=== PATIENT | female | born 1955 | race Caucasian/White ===

== ENCOUNTER 2021-11-09 10:38 | Outpatient (CLI) | payer MEDICARE, SELFPAY ==
--- NOTE | 2021-11-09 10:59 | XR_ITS ---
WS: [id number] Exam: XR lumbar spine 2-3V* [id number] Date/Time of Exam: 11/09/2021 11:02 AM Reason For Exam: LUMBAR BACK PAIN Comparison 06/02/2006. No acute fracture or dislocation. Degenerative vacuum disks noted from L2 to S1. Spondylosis. Moderat e dextroscoliosis. Facet DJD at all levels. Spondylosis. Extensive the atherosclerotic calcification of the abdominal aorta and iliac bifurcation. XR/XR lumbar spine 2-3V* [id number] IMPRESSION: 1. No fracture or malalignment.. 3. Moderate dextroscoliosis. 2. Moderately advanced degenerative disc changes from L2 to S1 with spondylosis
== END 2021-11-09 10:39 | disposition home or self-care (01) ==
PROVIDERS: PCP Family Medicine; Visit Provider Family Medicine
DX: M54.50 Low back pain, unspecified (principal)
CPT/HCPCS: 72100

== ENCOUNTER 2021-11-16 11:04 | Emergency (ER) | payer MEDICARE, SELFPAY ==
[2021-11-16 11:15] VITALS: BP 170/109; PULSE 95; RESP 20; TEMP 37; O2SAT 99
[2021-11-16 11:53] LABS: Basophils # 0.1 10^3/uL (0.0-0.1); Basophils % 0.8 %; Eosinophils # 0.1 10^3/uL (0.0-0.8); Eosinophils % 1.1 %; Hemoglobin 15.4 g/dL (11.5-15.3); Lymphocytes # 1.4 10^3/uL (0.8-4.8); Lymphocytes % 15.5 %; Mean Corpuscular HGB Conc 32.8 g/dL (30.0-36.0); Mean Corpuscular Hemoglobin 29.8 pg (28.0-34.0); Mean Corpuscular Volume 91.1 fl (81-99); Mean Platelet Volume 9.4 fL (7.4-10.4); Monocytes # 0.7 10^3/uL (0.2-0.9); Neutrophils # 6.82 10^3/uL (1.8-7.7); Neutrophils % 74.2 %; Nucleated Red Blood Cells % 0 %; Platelet Count 366 10^3/cmm (130-400); Red Blood Count 5.16 10^6/uL (4.1-5.3); Red Cell Distribution Width 13.2 % (12.1-15.1); White Blood Count 9.2 10^3/uL (4.0-10.0)
--- NOTE | 2021-11-16 12:21 | CT_ITS ---
WS: [id number] CT ABDOMEN AND PELVIS WITH CONTRAST HISTORY: Right-sided back pain, RIGHT lower quadrant pain TECHNIQUE: Imaging performed of the abdomen and pelvis with IV contrast. Single phase imaging of the abdomen. Coronal and sagittal reformats are submitted. All CT scans at [facility] use at [address] one of these dose optimization techniques: automated exposure control; mA and/or kV adjustment per patient size (includes targeted exams where dose is matched to clinical indication); or iterative re construction. IV CONTRAST: Omnipaque 350; 95 mL IV. Oral contrast: No DLP: 1385.44 mGy.cm COMPARISON: None available. Lower thorax: Lung bases are clear. Heart is normal size. Small hiatal hernia. Liver/biliary system: Normal size liver. Hepatic steatosis along the falciform ligament. Normally enh ancing portal vein. Gallbladder: Normal. No gallstones or wall thickening. No pericholecystic fluid. Pancreas: Normal size pancreas and pancreatic duct. No adjacent inflammation. Spleen: Normal size spleen. No mass or infarct. Adrenal glands: Normal. Right kidney: Normal. Left kidney: Too small to characterize hypodensities. No obstruction. Aorta: Moderate to severe atherosclerotic plaque throughout the aorta. Heavy calcification continues into the iliac arteries. Lymphadenopathy: None. Free fluid: None. GI tract: Unremarkable stomach. No small bowel dilatation. The appendix is normal. Numerous diverticu la in the distal colon without acute diverticulitis. Abdominal wall: Unremarkable abdominal wall. No hernia. Pelvis: No free fluid or adenopathy within the pelvis. Prior hysterectomy. Bones: Severe degenerative changes at the LEFT hip joint. Loss of the joint space with osteophytic ri dging and subchondral cystic changes. Advanced degenerative disc disease at L2-3, L3-4 and L4-5. No f ractures. CT/CT abdomen pelvis w con* [id number] IMPRESSION: 1. No acute abdominal or pelvic abnormalities. 2. Normal appendix. 3. No renal obstruction. 4. Moderate to severe atherosclerosis aorta and extending into the common jonathan c arteries. Suspect areas of high-grade stenosis involving the common iliac art eries. 5. Severe LEFT hip joint osteoarthritis.
--- NOTE | 2021-11-16 12:22 | W.ED.BACK ---
HPI - Back Pain/Injury General: Chief Complaint: Back Pain/Injury Stated Complaint: abdominal pain Time Seen by Provider: 11/16/21 11:46 Source: patient Mode of arrival: ambulatory History of Present Illness: 66-year-old female comes into the emergency room complaining of back pain and right flank right pelvic pain this been going on for the last week. She complains of tenderness in the right suprapubic pelvic area she has not had any fever sweats or chills. She has had abnormal stools for last years with some slightly blood-tinged stools and decreased caliber of stools difficulty with bowel movements. She has taken laxatives at times and will get bloody mucousy stools when she does this. She denies any dysuria urgency or frequency no history of nephrolithiasis no hematuria. When she was seen previously for the back pain plain films were done no significant findings were made she still is having back pain however the abdominal pelvic pain is worsening. Onset (ago): week(s) (1) Timing: intermittent Severity: moderate Similar Symptoms Previously: Yes Quality: aching Location: right flank Radiation: other (Right groin) Exacerbating factors: movement Relieving factors: none Associated symptoms: Deny abdominal pain, arthralgias, chills, change in bowel habits, difficulty walking, dysuria, fatigue, fecal incontinence, fever(s), hematuria, myalgias, nausea, numbness, syncope, tingling/numbness/burning, urinary frequency, urinary urgency, vomiting or weakness Review of Systems Const: Denies: fever(s), chills or fatigue ENMT: Denies: throat pain, ear or mastoid pain, nasal discharge or nasal congestion Card: Denies: syncope Resp: Denies: dyspnea, productive cough or non-productive cough GI: Denies: abdominal pain, nausea, vomiting, fecal incontinence or change in bowel habits : Denies: dysuria, urinary urgency or hematuria Skin/Breast: Denies: rash or pruritus Neuro: Denies: difficulty walking Physical Exam Const: COMMON NORMALS: no acute distress GENERAL APPEARANCE: cooperative and comfortable ORIENTATION/CONSCIOUSNESS: Yes awake, Yes oriented to person, Yes oriented to place and Yes oriented to time HENMT: COMMON NORMALS: normocephalic, atraumatic and hearing grossly normal bilaterally HEAD & SCALP: normocephalic and atraumatic Neck/C-Spine: COMMON NORMALS: no JVD Resp: COMMON NORMALS: normal respiratory effort, No retractions, No use of accessory muscles and clear to auscultation bilaterally AUSCULTATION: clear to auscultation bilaterally Cardio: COMMON NORMALS: no JVD, regular rate, regular rhythm and No murmurs present (Cardio) RATE: regular rate RHYTHM: regular rhythm GI: COMMON NORMALS: Soft to palpation and No hepatosplenomegaly present AUSCULTATION: Yes normoactive bowel sounds PALPATION: Yes Soft to palpation, No Tenderness to palpation present (GI), No Guarding due to palpation present (GI) and Yes No hepatosplenomegaly present Extremity: COMMON NORMALS: normal to inspection, capillary refill normal, no clubbing, cyanosis or edema, no calf tenderness and no pedal edema Neuro: SENSORIUM/ORIENTATION: Yes oriented to person, Yes oriented to place and Yes oriented to time OTHER: Straight leg raising test negative T10 pulses 1 of 4 with patellar tendons. Skin: COMMON NORMALS: no rashes or lesions noted GENERAL SKIN EXAM: no rashes or lesions noted Course Vital Signs: Vital signs: Vital Signs Temperature 98.6 F 11/16/21 11:15 Pulse Rate 95 11/16/21 11:15 Respiratory Rate 20 H 11/16/21 11:15 Blood Pressure 170/109 11/16/21 11:15 Pulse Oximetry 99 11/16/21 11:15 MDM - Back Pain/Injury Medical Decision Making Patient has significant peripheral vascular disease but is not having any claudication symptoms at this time most of her pain is musculoskeletal the remainder of her labs and x-rays reviewed with her we will discharge her home set up for cardiology recheck if not improving Medical Records I reviewed the patient's medical records. Labs I reviewed the patient's lab results. : 11/16/21 11:40 11/16/21 11:40 Radiology Impressions Abdomen/Pelvis CT 11/16/21 12:21 IMPRESSION: 1. No acute abdominal or pelvic abnormalities. 2. Normal appendix. 3. No renal obstruction. 4. Moderate to severe atherosclerosis aorta and extending into the common iliac arteries. Suspect areas of high-grade stenosis involving the common iliac arteries. 5. Severe LEFT hip joint osteoarthritis. Laboratory Results WBC 9.2 10^3/uL (4.0-10.0) 11/16/21 11:40 RBC 5.16 10^6/uL (4.1-5.3) 11/16/21 11:40 Hgb 15.4 g/dL (11.5-15.3) H 11/16/21 11:40 Hct 47.0 % (37.0-47.0) 11/16/21 11:40 MCV 91.1 fl (81-99) 11/16/21 11:40 MCH 29.8 pg (28.0-34.0) 11/16/21 11:40 MCHC 32.8 g/dL (30.0-36.0) 11/16/21 11:40 RDW 13.2 % (12.1-15.1) 11/16/21 11:40 Plt Count 366 10^3/cmm (130-400) 11/16/21 11:40 MPV 9.4 fL (7.4-10.4) 11/16/21 11:40 Neut % (Auto) 74.2 % 11/16/21 11:40 Lymph % (Auto) 15.5 % 11/16/21 11:40 Jerome % (Auto) 8.0 % 11/16/21 11:40 Eos % (Auto) 1.1 % 11/16/21 11:40 Baso % (Auto) 0.8 % 11/16/21 11:40 Neut # (Auto) 6.82 10^3/uL (1.8-7.7) 11/16/21 11:40 Lymph # (Auto) 1.4 10^3/uL (0.8-4.8) 11/16/21 11:40 Jerome # (Auto) 0.7 10^3/uL (0.2-0.9) 11/16/21 11:40 Eos # (Auto) 0.1 10^3/uL (0.0-0.8) 11/16/21 11:40 Baso # (Auto) 0.1 10^3/uL (0.0-0.1) 11/16/21 11:40 Nucleated RBC % (auto) 0 % 11/16/21 11:40 Nucleated RBCs # 0.0 /100WBC 11/16/21 11:40 Sodium 140 mmol/L (136-145) 11/16/21 11:40 Potassium 4.0 mmol/L (3.5-5.1) 11/16/21 11:40 Chloride 102 mmol/L (98-107) 11/16/21 11:40 Carbon Dioxide 24 mmol/L (22-29) 11/16/21 11:40 Anion Gap 18.0 (5-19) 11/16/21 11:40 BUN 13 mg/dL (8-23) 11/16/21 11:40 Creatinine 0.8 mg/dL (0.5-0.9) 11/16/21 11:40 GFR Calculation 71.8 mL/min (90-130) L 11/16/21 11:40 Glucose 100 mg/dL (65-115) 11/16/21 11:40 Calculated Osmolality 290 mOsm/kg (285-295) 11/16/21 11:40 Lactate 1.5 mmol/L (0.5-2.2) 11/16/21 11:40 Calcium 9.0 mg/dL (8.5-10.5) 11/16/21 11:40 Total Bilirubin 0.3 mg/dL (0.15-1.2) 11/16/21 11:40 AST 11 U/L (0-32) 11/16/21 11:40 ALT 13 U/L (0-33) 11/16/21 11:40 Alkaline Phosphatase 123 IU/L (35-105) H 11/16/21 11:40 Total Protein 6.6 g/dL (6.6-8.7) 11/16/21 11:40 Albumin 4.5 g/dL (3.5-5.2) 11/16/21 11:40 Globulin 2.1 g/dL (1.3-4.6) 11/16/21 11:40 Lipase 14 U/L (13-60) 11/16/21 11:40 Urine Color Yellow (Yellow) 11/16/21 Unknown Urine Appearance Clear (CLEAR) 11/16/21 Unknown Urine pH 6 (5-7) 11/16/21 Unknown Ur Specific [place] 1.015 (1.005-1.030) 11/16/21 Unknown Urine Protein Neg (Negative) 11/16/21 Unknown Urine Glucose (UA) Norm (Normal) 11/16/21 Unknown Urine Ketones Negative (Negative) 11/16/21 Unknown Urine Blood 2+ (Negative) H 11/16/21 Unknown Urine Nitrate Negative (Negative) 11/16/21 Unknown Urine Bilirubin Neg (Negative) 11/16/21 Unknown Urine Urobilinogen Norm mg/dL (Negative) 11/16/21 Unknown Ur Leukocyte Esterase Negative (Negative) 11/16/21 Unknown Urine RBC 0-4 /hpf (0-2) H 11/16/21 Unknown Urine WBC 0-4 /hpf (0-5) H 11/16/21 Unknown Ur Squamous Epith Cells 0-4 /hpf (0-5) H 11/16/21 Unknown Amorphous Sediment Not Reportable 11/16/21 Unknown Urine Bacteria 2+ /hpf (NONE) H 11/16/21 Unknown Discharge Plan Discharge Patient Disposition: Home Clinical Impression: Strain of lumbar region, Sciatica, PAD (peripheral artery disease) Condition: Stable Prescriptions: New hydrocodone-acetaminophen 5-325 mg tablet 1 tab PO Q6H PRN (Reason: pain) Qty: 15 0RF No Action albuterol sulfate 2.5 mg /3 mL (0.083 %) solution for nebulization 2.5 mg inhalation Q4H PRN (Reason: Shortness Of Breath) 0RF lisinopril 20 mg tablet 40 mg PO QAM 0RF tramadol 50 mg tablet 50 mg PO TID PRN (Reason: Pain) 0RF amlodipine 10 mg tablet 10 mg PO QAM 0RF levothyroxine 50 mcg tablet 50 mcg PO QAM 0RF ibuprofen 200 mg Tablet 800 mg PO BID 0RF albuterol sulfate 90 mcg/actuation HFA aerosol inhaler 2 puff INHALATION Q4H PRN (Reason: Shortness Of Breath) 0RF Spiriva with HandiHaler 18 mcg capsule, w/inhalation device 1 cap INHALATION QAM 0RF Symbicort 160-4.5 mcg/actuation HFA aerosol inhaler 2 puff INHALATION DAILY 0RF Discharge Orders: Discharge ED (Routine); Ordered 11/16/21 Ordered By: Marciano Ovalle Referrals: Jamal Yeh MD [Primary Care Provider] - Discharge Diet: Usual diet Discharge Activity: Increase activity as tolerated Patient Instructions: Opioid Safety Activity Restrictions/Additional Instructions: Case management will call make arrangements for you to follow-up with cardiology to evaluate the blood flow findings in your legs today. Use the pain medication as above and follow-up with your primary care doctor as needed. Coding Level of Care Code ED Signal Operator Linguist for Rebecca Henry
[2021-11-16] MEDS: ondansetron 2 mg/ML SDV 2 mL 4 MG IVP (12:27)
[2021-11-16] MEDS: morphine 4 mg/mL SDV 1 mL IVP (12:27)
[2021-11-16 12:36] LABS: Add Urine Microscopic? YES; Bilirubin Urine Neg (Negative); Blood Urine 2+ (Negative); Glucose Urine UA Norm (Normal); Ketones Urine Negative (Negative); Leukocyte Esterase Urine Negative (Negative); Nitrate Urine Negative (Negative); Protein Urine Neg (Negative); Specific Gravity, Urine 1.015 (1.005-1.030); Urine Appearance Clear (CLEAR); Urine Color Yellow (Yellow); Urobilinogen Urine Norm (Negative); pH Urine 6 (5-7)
[2021-11-16 12:41] LABS: Lactate (Lactic Acid level) 1.5 mmol/L (0.5-2.2)
[2021-11-16 12:45] LABS: Add Urine Culture? Yes; Bacteria Urine 2+ /hpf; RBC Urine 0-4 /hpf (0-2); Squamous Epithelial Cell Urine 0-4 /hpf (0-5); WBC Urine 0-4 /hpf (0-5)
[2021-11-16 12:54] LABS: Alanine Aminotransferase 13 U/L (0-33); Albumin Level 4.5 g/dL (3.5-5.2); Alkaline Phosphatase 123 IU/L (35-105); Aspartate Amino Transferase 11 U/L (0-32); Blood Urea Nitrogen 13 mg/dL (8-23); Carbon Dioxide 24 mmol/L (22-29); Chloride 102 mmol/L (98-107); Globulin 2.1 g/dL (1.3-4.6); Glomerular Filtration Rate 71.8 mL/min (90-130); Glucose 100 mg/dL (65-115); Lipase 14 U/L (13-60); Osmolality Calculated 290 mOsm/kg (285-295); Sodium 140 mmol/L (136-145); Total Bilirubin 0.3 mg/dL (0.15-1.2); Total Protein 6.6 g/dL (6.6-8.7)
[2021-11-16] MEDS: iohexol 350 mg/mL 100 mL Btl IV (13:50)
== END 2021-11-16 15:03 | disposition home or self-care (01) ==
PROVIDERS: Emergency Medicine; Emergency Provider Family Medicine; PCP Family Medicine
DX: S39.012A Strain of muscle, fascia and tendon of lower back, initial encounter (principal); X58.XXXA Exposure to other specified factors, initial encounter; M54.30 Sciatica, unspecified side; I73.9 Peripheral vascular disease, unspecified; Z79.51 Long term (current) use of inhaled steroids; Z79.891 Long term (current) use of opiate analgesic
CPT/HCPCS: 74177; 80053; 81001; 83605; 83690; 85025; 87086; 96374; 96375; 99284; J2270; J2405; Q9967

== ENCOUNTER → 2021-12-01 14:41 | Outpatient (BNVA) | payer MEDICARE, SELFPAY | PROVIDERS: PCP Family Medicine; Visit Provider Internal Medicine Cardiovascular Disease | DX: I77.1 Stricture of artery (principal); I10 Essential (primary) hypertension; E78.00 Pure hypercholesterolemia, unspecified; F17.200 Nicotine dependence, unspecified, uncomplicated | CPT/HCPCS: 99204 ==

== ENCOUNTER 2022-02-27 14:34 | Outpatient (CLI) | payer MEDICARE, SELFPAY ==
--- NOTE | 2022-02-27 15:00 | USCV_ITS ---
Anju Tipton Age: 67 Gender: F : 1955 Exam Date: 02/27/2022 14:53 Ordering Phys: Ning Weeks MD ([email or web address]) Technologist: Janis Whipple Exam Location: [facility] [place] [facility] [place] Indication: leg pain Risk Factors: None Previous Vascular Surgery: None RIGHT LEFT BP: 149.0 / 93.00 BP: 138.0/ 81.00 0 0 Waveform Velocity (cm/s) Velocity (cm/s) Waveform Triphasic 103.3 Iliac Prox 128.4 Triphasic Triphasic 121.8 Iliac Mid 110.8 Triphasic Triphasic 98.4 Iliac Distal 110.8 Triphasic Triphasic 88.9 PLUG MAKER 87.9 Triphasic Triphasic 82.8 SFA Prox 120.2 Triphasic Triphasic SFA Mid Biphasic 58.3 72.8 Triphasic 74.6 SFA Dist 34.2 Biphasic Triphasic 57.6 POP 58.3 Biphasic Triphasic 54.2 TRAFFIC SURVEY TECHNICIAN 41.7 Biphasic Triphasic 30.3 DPA 46.5 Biphasic 1.1 DARRICK 1.1 FINDINGS RT TRAFFIC SURVEY TECHNICIAN - 172, RT DPA- 144 LT TRAFFIC SURVEY TECHNICIAN- 158, LT DPA 148 Resting DARRICK 1.1 on the right and 1.1 on the left Mild to moderate plaques in the iliac and femoral arteries bilaterally. CONCLUSIONS Normal resting ABIs bilaterally Mild to moderate plaques in the iliac and femoral arteries bilaterally No significant arterial obstruction, based on the above findings Dr Ning Weeks MD [facility] (Electronically Signed) Final Date: 28 February 2022 01:02 S
== END 2022-02-27 14:35 | disposition home or self-care (01) ==
LOC: RAD 14:36
PROVIDERS: PCP Family Medicine; Visit Provider Internal Medicine Cardiovascular Disease
DX: I70.8 Atherosclerosis of other arteries (principal); I70.203 Unspecified atherosclerosis of native arteries of extremities, bilateral legs; M79.606 Pain in leg, unspecified
CPT/HCPCS: 93925

== ENCOUNTER 2022-03-01 14:01 | Outpatient (CLI) | payer MEDICARE, SELFPAY ==
--- NOTE | 2022-03-01 14:00 | CT_ITS ---
WS: [id number] CT ANGIOGRAPHY OF THE ABDOMINAL AORTA WITH RUNOFF TO THE ANKLES HISTORY: pelvic pain, atherosclerosis TECHNIQUE: Arterial injection is performed during imaging to evaluate the aorta and runoff vessels to the ankles. MIP and volume rendering imaging has also been performed. All images are reviewed. All C T scans at [facility] use at least one of these dose optimization techniques: automated exposu re control; mA and/or kV adjustment per patient size (includes targeted exams where dose is matched t o clinical indication); or iterative reconstruction. Contrast: Omnipaque 350; 95 mL IV. DLP: 824.86 mGy.cm COMPARISON: None available. Centrilobular emphysema at the lung bases. Heart is normal size. Remote rib fracture in the posterior RIGHT lower thorax. Abdominal aorta: Moderate calcified plaque throughout the small caliber aorta. Plaque becomes more ci rcumferential towards the bifurcation. Smallest diameter of aorta is 5.4 mm just above the bifurcatio n. No aneurysm. SMA and celiac axis are patent. There is a small amount of calcified plaque at the or igins of the renal arteries but the kidneys are perfusing normally. MAGDALENO is patent. RIGHT lower extremity arterial system: There is heavy calcified plaque at the origin of the RIGHT com mon iliac artery. Stenosis of the proximal RIGHT common iliac artery estimated 70%. Additional plaque through the internal and external iliac arteries. Femoral artery 50% narrowed due to intimal thicken ing and calcification. SFA and deep profunda are intact although small caliber. SFA patent to the pop liteal artery. Small caliber but three-vessel runoff to the ankle. Contrast opacification distally is limited due to the phase of injection. LEFT lower extremity arterial system: Heavy calcified plaque at the origin of the common iliac artery . Stenosis estimated to be 80% extending over a segment of 2 to 3 cm. Internal and external common il iac arteries are patent. Internal iliac artery is small caliber. Calcified plaque with 50% narrowing of the femoral artery. SFA and deep profunda are intact with mild atherosclerotic plaque. Small calib er deep profunda. Small amount of plaque in the mid thigh within the SFA. Calcification continues int o the distal SFA to the popliteal artery. Three-vessel opacification to the ankle but limited opacifi cation is probably due to phase of an contrast injection. Tricuspid regurgitation. Liver, spleen and pancreas are negative. Negative skull gallbladder. Normal adrenal glands. Vascular calcifications in the renal pelves but there is normal enhancement of the ki dneys. No ascites or adenopathy. No GI tract obstruction. Distal sigmoid diverticulosis without acute diverticulitis. Subcentimeter RI GHT lower quadrant lymph nodes. Severe degenerative osteoarthritis of the LEFT hip joint. Loss of the normal contour of the femoral h ead and acetabulum with subchondral cystic changes and lateral subluxation. Remodeling of the acetabu lum. Moderate degenerative disc disease throughout the lumbar spine. CT/CT angio abd aorta runof [id number] IMPRESSION: 1. Moderate atherosclerotic plaque throughout the abdominal aorta resulting in small caliber abdominal aorta. Minimal diameter is 5.4 cm just above the bifur cation. 2. Heavy calcified plaque bilaterally involving the origins and proximal commo n iliac arteries. RIGHT proximal iliac artery stenosis estimated at 70%. Proxim al LEFT iliac artery stenosis estimated at 80%. 3. 50% stenosis involving the femoral arteries. 4. Limited three-vessel runoff to the ankles. Beyond the mid calf the runoff i s very limited due to poor opacification. This is probably due to timing of the contrast injection bolus. 5. Severe LEFT hip joint osteoarthritis with remodeling and partial subluxatio n.
[2022-03-01 14:35] LABS: Blood Urea Nitrogen 16 mg/dL (8-23); Glomerular Filtration Rate 55.3 mL/min (90-130)
[2022-03-01] MEDS: iohexol 350 mg/mL 100 mL Btl IV (14:50)
== END 2022-03-01 14:02 | disposition home or self-care (01) ==
LOC: RAD 14:02
PROVIDERS: PCP Family Medicine; Visit Provider Internal Medicine Cardiovascular Disease
DX: I70.203 Unspecified atherosclerosis of native arteries of extremities, bilateral legs (principal); I77.1 Stricture of artery; R10.2 Pelvic and perineal pain; M16.12 Unilateral primary osteoarthritis, left hip
CPT/HCPCS: 75635; 82565; 84520

== ENCOUNTER → 2022-03-08 15:12 | Outpatient (BNVA) | payer MEDICARE, SELFPAY | PROVIDERS: PCP Family Medicine; Visit Provider Internal Medicine Cardiovascular Disease | DX: I70.203 Unspecified atherosclerosis of native arteries of extremities, bilateral legs (principal); R06.02 Shortness of breath; F17.210 Nicotine dependence, cigarettes, uncomplicated; I10 Essential (primary) hypertension | CPT/HCPCS: 99214 ==

== ENCOUNTER 2022-03-20 08:54 | Outpatient (CLI) | payer MEDICARE, SELFPAY ==
[2022-03-20 09:48] LABS: Alanine Aminotransferase 18 U/L (0-33); Albumin Level 4.2 g/dL (3.5-5.2); Alkaline Phosphatase 108 U/L (35-105); Aspartate Amino Transferase 13 U/L (0-32); Chol HDL Ratio 4.45 mg/dL (0.0-4.40); Cholesterol 236 mg/dL (0-200); Globulin 2.2 g/dL (1.3-4.6); HDL Cholesterol 53 mg/dL (60-100); LDL Cholesterol Calculated 157 mg/dL (50-129); Total Bilirubin 0.2 mg/dL (0.15-1.2); Total Protein 6.4 g/dL (6.6-8.7); Triglycerides 130 mg/dL (0-150); VLDL Cholestrol Calculation 26 mg/dL (0-30)
== END 2022-03-20 08:55 | disposition home or self-care (01) ==
LOC: LAB 08:58
PROVIDERS: PCP Family Medicine; Visit Provider Internal Medicine Cardiovascular Disease
DX: I70.203 Unspecified atherosclerosis of native arteries of extremities, bilateral legs (principal); E78.5 Hyperlipidemia, unspecified
CPT/HCPCS: 36415; 80061; 80076

== ENCOUNTER → 2022-07-06 13:57 | Outpatient (BNVA) | payer MEDICARE, SELFPAY | PROVIDERS: PCP Family Medicine; Visit Provider Internal Medicine Cardiovascular Disease | DX: I70.203 Unspecified atherosclerosis of native arteries of extremities, bilateral legs (principal); I10 Essential (primary) hypertension; E78.00 Pure hypercholesterolemia, unspecified; F17.200 Nicotine dependence, unspecified, uncomplicated | CPT/HCPCS: 99214 ==

== ENCOUNTER 2022-10-11 11:44 | Emergency (ER) | payer MEDICARE, SELFPAY ==
[2022-10-11 11:52] VITALS: BP 156/90; PULSE 95; RESP 16; TEMP 36.7; O2SAT 94
--- NOTE | 2022-10-11 11:58 | XRR_ITS ---
PROCEDURE INFORMATION: Exam: XR Abdomen Exam date and time: 10/11/2022 12:38 PM Age: 67 years old Clinical indication: Constipation; Abdominal pain; Generalized; Additional info: Abd pain /constipation TECHNIQUE: Imaging protocol: Radiologic exam of the abdomen. Views: Frontal supine view of the abdomen. 1 View. COMPARISON: CT abdomen pelvis w con* [id number] 11/16/2021 1:41 PM FINDINGS: Gastrointestinal tract: Bowel gas pattern is unremarkable. No sign of obstruction. Bones/joints: Severe osteoarthritis at the left hip. There is moderate multilevel lumbar disc degeneration. XR/XR KUB portable [id number] IMPRESSION: No acute findings.
[2022-10-11 12:12] LABS: Add Urine Microscopic? NO; Charge for UA Resulting for Rev
[2022-10-11 12:30] LABS: Bilirubin Urine Neg (Negative); Blood Urine Neg (Negative); Glucose Urine UA Norm (Normal); Ketones Urine Negative (Negative); Leukocyte Esterase Urine Negative (Negative); Nitrate Urine Negative (Negative); Protein Urine Neg (Negative); Urine Appearance Clear (CLEAR); Urine Color Yellow (Yellow); Urobilinogen Urine Norm (Negative); pH Urine 7 (5-7)
[2022-10-11 13:07] LABS: Basophils # 0.1 10^3/uL (0.0-0.1); Basophils % 0.8 %; Eosinophils # 0.1 10^3/uL (0.0-0.8); Hematocrit 40.6 % (37.0-47.0); Hemoglobin 13.5 g/dL (11.5-15.3); Lymphocytes # 1.5 10^3/uL (0.8-4.8); Lymphocytes % 18.9 %; Mean Corpuscular HGB Conc 33.3 g/dL (30.0-36.0); Mean Corpuscular Hemoglobin 29.6 pg (28.0-34.0); Mean Platelet Volume 9.4 fL (7.4-10.4); Monocytes # 0.6 10^3/uL (0.2-0.9); Monocytes % 8.1 %; Neutrophils # 5.44 10^3/uL (1.8-7.7); Neutrophils % 70.8 %; Nucleated Red Blood Cells % 0 %; Platelet Count 391 10^3/cmm (130-400); Red Blood Count 4.56 10^6/uL (4.1-5.3); Red Cell Distribution Width 13.4 % (12.1-15.1); White Blood Count 7.7 10^3/uL (4.0-10.0)
[2022-10-11 13:22] LABS: Alanine Aminotransferase 15 U/L (0-33); Albumin Level 3.7 g/dL (3.5-5.2); Alkaline Phosphatase 114 U/L (35-105); Anion Gap 14.9 (5-19); Aspartate Amino Transferase 14 U/L (0-32); Blood Urea Nitrogen 7 mg/dL (8-23); Calcium 9.1 mg/dL (8.5-10.5); Carbon Dioxide 24 mmol/L (22-29); Chloride 106 mmol/L (98-107); Globulin 2.6 g/dL (1.3-4.6); Glomerular Filtration Rate 99.7 mL/min (90-130); Glucose 93 mg/dL (65-115); Osmolality Calculated 292 mOsm/kg (285-295); Sodium 142 mmol/L (136-145); Total Bilirubin 0.3 mg/dL (0.15-1.2); Total Protein 6.3 g/dL (6.6-8.7)
--- NOTE | 2022-10-11 13:26 | CTR_ITS ---
PROCEDURE INFORMATION: Exam: CT Abdomen And Pelvis Without Contrast Exam date and time: 10/11/2022 1:45 PM Age: 67 years old Clinical indication: Abdominal pain; Localized; Patient HX: Bloating, lower abd pain, and cramping TECHNIQUE: Imaging protocol: Computed tomography of the abdomen and pelvis without contrast. Radiation optimization: All CT scans at this facility use at least one of these dose optimization techniques: automated exposure control; mA and/or kV adjustment per patient size (includes targeted exams where dose is matched to clinical indication); or iterative reconstruction. REPORTING DATA: Count of CT and Cardiac NM exams in prior 12 months: This patient has received 2 known CTs and 0 known cardiac nuclear medicine studies in the 12 months prior to the current study. COMPARISON: 1. CT abdomen pelvis w con* [id number] 11/16/2021 1:41 PM 2. CR XR KUB portable [id number] 10/11/2022 12:[address] angio abd aorta runof [id number] 03/01/2022 2:38 PM RADIATION DOSE METRICS: Total DLP (mGy-cm): 466.63 FINDINGS: Lungs: Lung bases are clear. Liver: The liver is normal. Gallbladder and bile ducts: The gallbladder is normal. There is no biliary dilation. Pancreas: The pancreas is unremarkable. Spleen: The spleen is unremarkable. Adrenal glands: The adrenal glands are unremarkable. Kidneys and ureters: The kidneys are unremarkable. No hydronephrosis or stones. No ureteral dilation. Stomach and bowel: The stomach is decompressed, preventing meaningful evaluation of wall thickness. The small bowel is nondilated. There is moderate sigmoid colonic diverticulosis without evidence of diverticulitis. Appendix: The appendix is normal. Intraperitoneal space: There is no free air or significant intraperitoneal free fluid. Vasculature: There is severe aortic atherosclerotic disease. Lymph nodes: There is no lymphadenopathy in the retroperitoneum, mesentery, pelvis or inguinal regions. Urinary bladder: The urinary bladder is unremarkable. Reproductive: The uterus is absent. There is no adnexal mass or large cyst. Bones/joints: There is moderate degenerative disease in the lumbar spine. There is severe degenerative disease at the left hip. The right hip is normal. Joint space is preserved. The bony pelvis is intact. Soft tissues: The abdominal wall is intact. CT/CT abdomen pelvis wo con [id number] IMPRESSION: 1. No acute findings. 2. Incidental findings above.
[2022-10-11 13:28] LABS: Potassium 2.9 mmol/L (3.5-5.1)
--- NOTE | 2022-10-11 13:30 | W.ED.ABDPA2 ---
HPI - Abdominal Pain General: Chief Complaint: Abdominal Pain Stated Complaint: abd pain/constipation Time Seen by Provider: 10/11/22 11:58 Source: patient Mode of arrival: ambulatory History of Present Illness: 67-year-old female presents to the emergency room with complaint of abdominal pain. Its been intermittent for the last week and a half she says refocuses in the left lower quadrant. She was seen previously and started on ciprofloxacin by her primary care doctor. She denies any medic easy money hematemesis coffee-ground emesis had a little bit of a low-grade fever at home denies any dysuria urgency or frequency. MD elicited complaint: abdominal pain Pertinent past history: constipation Onset (ago): week(s) (07/24) Pain Consistency: intermittent Location: LUQ and LLQ Severity: mild Quality: cramping Exacerbating factors: nothing Relieving factors: nothing Associated Symptoms: Reports constipation and GI cramping; Denies anorexia, belching, bloating, change in bowel habits, change in stool character, chills, coffee ground emesis, diarrhea, dyspepsia, dysuria, excessive flatus, fever(s), heartburn, hematochezia, hematuria, hematemesis, fecal incontinence, loose stools, melena, nausea, poor appetite, syncope and vomiting Review of Systems Const: Denies: fever(s) or chills Card: Denies: syncope Resp: Denies: dyspnea or productive cough GI: Reports: constipation and GI cramping; Denies: abdominal pain, nausea, vomiting, hematemesis, coffee ground emesis, heartburn, diarrhea, bloating, belching, excessive flatus, fecal incontinence, change in bowel habits, change in stool character, hematochezia or melena : Denies: flank pain, dysuria, urinary frequency, urinary urgency or hematuria PFSH ED PFSH: Medical History Atherosclerosis of artery of both lower extremities Essential hypertension Iliac artery stenosis, bilateral Pure hypercholesterolemia Family History Father CAD (coronary artery disease), Onset Age: 60 Mother Diabetes Lung disease Brother Diabetes Denies family history of Clotting disorder Dementia Chronic kidney disease (CKD) Suicide Anesthesia complication Bleeding disorder Cancer Stroke Social History Smoking and tobacco status: current every day smoker Alcohol intake: never Physical Exam Const: GENERAL APPEARANCE: cooperative and comfortable ORIENTATION/CONSCIOUSNESS: Yes awake, Yes oriented to person, Yes oriented to place and Yes oriented to time HENMT: COMMON NORMALS: normocephalic, atraumatic and hearing grossly normal bilaterally HEAD & SCALP: normocephalic and atraumatic Resp: COMMON NORMALS: normal respiratory effort, No retractions, No use of accessory muscles and clear to auscultation bilaterally AUSCULTATION: clear to auscultation bilaterally Cardio: COMMON NORMALS: regular rate, regular rhythm and No murmurs present (Cardio) RATE: regular rate RHYTHM: regular rhythm GI: COMMON NORMALS: No hepatosplenomegaly present AUSCULTATION: Yes normoactive bowel sounds PALPATION: Yes Tenderness to palpation present (GI), No Guarding due to palpation present (GI) and Yes No hepatosplenomegaly present Extremity: COMMON NORMALS: normal to inspection, capillary refill normal, no clubbing, cyanosis or edema, no calf tenderness and no pedal edema Neuro: SENSORIUM/ORIENTATION: Yes oriented to person, Yes oriented to place and Yes oriented to time Skin: COMMON NORMALS: no rashes or lesions noted GENERAL SKIN EXAM: no rashes or lesions noted Course Vital Signs: Vital signs: Vital Signs Temperature 98.0 F 10/11/22 11:52 Pulse Rate 95 10/11/22 11:52 Respiratory Rate 16 10/11/22 11:52 Blood Pressure 156/90 10/11/22 11:52 Pulse Oximetry 94 10/11/22 11:52 Oxygen Delivery Me thod 10/11/22 11:52 MDM - Abdominal Pain Medical Decision Making Labs and imaging reviewed no acute findings white count normal CT of the abdomen does not show any acute findings. We will discharge patient home. Clear liquid diet advance as tolerated patient also has some hypokalemia she was given oral potassium supplement emergency room and discharged home with p.o. supplement. Follow-up with her primary care doctor return if is worsening problems. Differential Diagnosis Likely abdominal pain, acute appendicitis, calculus of kidney, constipation, diverticulitis, gastroenteritis and small bowel obstruction Medical Records I reviewed the patient's medical records. Lab Data I reviewed the patient's lab results. 10/11/22 12:29 10/11/22 12:29 Labs/Radiology: Radiology Impressions KUB X-Ray 10/11/22 11:58 IMPRESSION: No acute findings. Abdomen/Pelvis CT 10/11/22 13:26 IMPRESSION: 1. No acute findings. 2. Incidental findings above. Laboratory Results WBC 7.7 10^3/uL (4.0-10.0) 10/11/22 12: RBC 4.56 10^6/uL (4.1-5.3) 10/11/22 12: Hgb 13.5 g/dL (11.5-15.3) 10/11/22 12: Hct 40.6 % (37.0-47.0) 10/11/22 12: MCV 89.0 fl (81-99) 10/11/22 12: MCH 29.6 pg (28.0-34.0) 10/11/22 12: MCHC 33.3 g/dL (30.0-36.0) 10/11/22 12: RDW 13.4 % (12.1-15.1) 10/11/22 12: Plt Count 391 10^3/cmm (130-400) 10/11/22 12: MPV 9.4 fL (7.4-10.4) 10/11/22 12: Neut % (Auto) 70.8 % 10/11/22 12: Lymph % (Auto) 18.9 % 10/11/22 12: [place] % (Auto) 8.1 % 10/11/22 12: Eos % (Auto) 1.0 % 10/11/22 12:29 Baso % (Auto) 0.8 % 10/11/22 12: Neut # (Auto) 5.44 10^3/uL (1.8-7.7) 10/11/22 12: Lymph # (Auto) 1.5 10^3/uL (0.8-4.8) 10/11/22 12: [place] # (Auto) 0.6 10^3/uL (0.2-0.9) 10/11/22 12: Eos # (Auto) 0.1 10^3/uL (0.0-0.8) 10/11/22 12:29 Baso # (Auto) 0.1 10^3/uL (0.0-0.1) 10/11/22 12: Nucleated RBC % (auto) 0 % 10/11/22 12: Nucleated RBCs # 0.0 /100WBC 10/11/22 12:29 Sodium 142 mmol/L (136-145) 10/11/22 12: Potassium 2.9 mmol/L (3.5-5.1) L 10/11/22 12: Chloride 106 mmol/L (98-107) 10/11/22 12: Carbon Dioxide 24 mmol/L (22-29) 10/11/22 12: Anion Gap 14.9 (5-19) 10/11/22 12: BUN 7 mg/dL (8-23) L 10/11/22 12: Creatinine 0.6 mg/dL (0.5-0.9) 10/11/22 12: GFR Calculation 99.7 mL/min (90-130) 10/11/22 12: Glucose 93 mg/dL (65-115) 10/11/22 12: Calculated Osmolality 292 mOsm/kg (285-295) 10/11/22 12: Calcium 9.1 mg/dL (8.5-10.5) 10/11/22 12: Total Bilirubin 0.3 mg/dL (0.15-1.2) 10/11/22 12:29 AST 14 U/L (0-32) 10/11/22 12: ALT 15 U/L (0-33) 10/11/22 12:29 Alkaline Phosphatase 114 U/L (35-105) H 10/11/22 12:29 Total Protein 6.3 g/dL (6.6-8.7) L 10/11/22 12: Albumin 3.7 g/dL (3.5-5.2) 10/11/22 12: Globulin 2.6 g/dL (1.3-4.6) 10/11/22 12:29 Urine Color Yellow (Yellow) 10/11/22 12:00 Urine Appearance Clear (CLEAR) 10/11/22 12:00 Urine pH 7 (5-7) 10/11/22 12:00 Ur Specific [place] 1.010 (1.005-1.030) 10/11/22 12:00 Urine Protein Neg (Negative) 10/11/22 12:00 Urine Glucose (UA) Norm (Normal) 10/11/22 12:00 Urine Ketones Negative (Negative) 10/11/22 12:00 Urine Blood Neg (Negative) 10/11/22 12:00 Urine Nitrate Negative (Negative) 10/11/22 12:00 Urine Bilirubin Neg (Negative) 10/11/22 12:00 Urine Urobilinogen Norm mg/dL (Negative) 10/11/22 12:00 Ur Leukocyte Esterase Negative (Negative) 10/11/22 12:00 Discharge Plan Discharge Patient Disposition: Home Clinical Impression: Abdominal pain, Hypokalemia Condition: Stable Prescriptions: New potassium chloride 20 mEq tablet extended release 20 meq PO BID Qty: 6 0RF No Action clopidogrel [Plavix] 75 mg tablet 75 mg PO DAILY Qty: 90 3RF albuterol sulfate 2.5 mg /3 mL (0.083 %) solution for nebulization 2.5 mg inhalation Q4H PRN (Reason: Shortness Of Breath) lisinopril 20 mg tablet 40 mg PO QAM tramadol 50 mg tablet 50 mg PO TID PRN (Reason: Pain) amlodipine 10 mg tablet 10 mg PO QAM levothyroxine 50 mcg tablet 50 mcg PO QAM ibuprofen 200 mg Tablet 800 mg PO BID albuterol sulfate 90 mcg/actuation HFA aerosol inhaler 2 puff INHALATION Q4H PRN (Reason: Shortness Of Breath) Spiriva with HandiHaler 18 mcg capsule, w/inhalation device 1 cap INHALATION QAM budesonide-formoterol [Symbicort] 160-4.5 mcg/actuation HFA aerosol inhaler 2 puff INHALATION BID hydralazine 25 mg tablet 25 mg PO DAILY promethazine 25 mg Tablet 25 mg PO BID PRN (Reason: Nausea) Discharge Orders: Discharge ED (Routine); Ordered 10/11/22 Ordered By: Marciano Ovalle Referrals: KWADWO CARTER MD [Primary Care Provider] - Patient Instructions: Abdominal Pain (ED), Opioid Safety, Pain Management Activity Restrictions/Additional Instructions: You are seen for abdominal pain CT and laboratory tests are unremarkable recommend anticoagulants. You are also found to be hypokalemic recommend potassium supplement you were given some potassium supplement here in the emergency room you should take 1 pill twice daily for 3 days starting tomorrow recheck your potassium level with your primary care doctor in 2 to 3 days. Coding Level of Care Code ED Base W[employer] Operator Adjuster for Rebecca Henry
[2022-10-11] MEDS: potassium chloride oral liq 20 mEq/15 mL UDC 40 MEQ PO (14:23)
== END 2022-10-11 15:06 | disposition home or self-care (01) ==
PROVIDERS: Emergency Provider Family Medicine; PCP Family Medicine
DX: R10.32 Left lower quadrant pain (principal); E87.6 Hypokalemia; Z79.02 Long term (current) use of antithrombotics/antiplatelets; I25.10 Atherosclerotic heart disease of native coronary artery without angina pectoris; I10 Essential (primary) hypertension; F17.210 Nicotine dependence, cigarettes, uncomplicated
CPT/HCPCS: 74018; 74176; 80053; 81003; 85025; 99285

== ENCOUNTER → 2023-01-18 14:07 | Outpatient (BNVA) | payer MEDICARE, SELFPAY | PROVIDERS: PCP Family Medicine; Visit Provider Internal Medicine Cardiovascular Disease | DX: I77.9 Disorder of arteries and arterioles, unspecified (principal); R06.02 Shortness of breath; I10 Essential (primary) hypertension; E78.00 Pure hypercholesterolemia, unspecified; F17.200 Nicotine dependence, unspecified, uncomplicated | CPT/HCPCS: 99214 ==

== ENCOUNTER → 2023-10-03 10:22 | Outpatient (BNVA) | payer MEDICARE, SELFPAY | PROVIDERS: PCP Family Medicine; Visit Provider Nurse Practitioner Family | DX: I77.1 Stricture of artery (principal); I10 Essential (primary) hypertension; F17.200 Nicotine dependence, unspecified, uncomplicated | CPT/HCPCS: 99214 ==

== ENCOUNTER 2023-10-04 07:38 | Outpatient (CLI) | payer MEDICARE, SELFPAY ==
--- NOTE | 2023-10-04 07:42 | US_ITS ---
WS: [id number] ULTRASOUND ABDOMEN CLINICAL INFORMATION: DIVERTICULITIS COMPARISON: None. FINDINGS: Technically difficult study due to bowel gas. Liver Size: Normal. Craniocaudal length: 14.5 cm. Echogenicity: Coarse and echogenic Surface nodularity: None. Mass (size and location): None. Normal flow in the main portal vein. Bile ducts Intrahepatic ducts: Normal. Common bile duct diameter: 0.5 cm. Gallbladder Normal. Gallstones: None. Gallbladder sludge: None. Gallbladder wall thickening: None. Pericholecystic fluid: None. Sonographic Amezcua sign: Absent. Pancreas Not well visualized Spleen Splenomegaly: None. Craniocaudal length: 6.9 cm. Right kidney: Normal. Hydronephrosis: None. Size: 8.4 cm x 3.7 cm x 3.9 cm Left kidney: Normal. Hydronephrosis: None. Size: 8.4 cm x 5.6 cm x 3.9 cm. Abdominal aorta and IVC Visualized portions are normal. Ascites: None. IMPRESSION: 1. Mild diffuse fatty infiltration of the liver. 2. Normal gallbladder. 3. Normal common bile duct. 4. No hydronephrosis in either kidney. 5. Spleen somewhat diminutive but otherwise normal.
== END 2023-10-04 07:39 | disposition home or self-care (01) ==
LOC: RAD 07:40
PROVIDERS: PCP Internal Medicine; Visit Provider Family Medicine
DX: K57.92 Diverticulitis of intestine, part unspecified, without perforation or abscess without bleeding (principal); R10.30 Lower abdominal pain, unspecified; K76.0 Fatty (change of) liver, not elsewhere classified
CPT/HCPCS: 76700

== ENCOUNTER 2023-10-09 13:57 | Outpatient (CLI) | payer MEDICARE, SELFPAY ==
--- NOTE | 2023-10-09 14:30 | CTR_ITS ---
PROCEDURE INFORMATION: Exam: CTA Abdominal Aorta and Bilateral Lower Extremities (Run-off) With Contrast Exam date and time: 10/09/2023 2:19 PM Age: 68 years old Clinical indication: Other: Pain in low back into right groin area x 2 years; Prior surgery; Surgery date: 6+ months; Surgery type: Hyst; Additional info: Iliac stenosis bilateral, 70-80% TECHNIQUE: Imaging protocol: Computed tomographic angiography of the of the abdominal aorta, pelvis and bilateral lower extremities with contrast. 3D rendering (Not supervised by radiologist): MIP and/or 3D reconstructed images were created by the technologist. Total images: 1 Radiation optimization: All CT scans at this facility use at least one of these dose optimization techniques: automated exposure control; mA and/or kV adjustment per patient size (includes targeted exams where dose is matched to clinical indication); or iterative reconstruction. Contrast material: OMNI 350; Contrast volume: 125 ml; Contrast route: INTRAVENOUS (IV); COMPARISON: CT angio abd aorta runof 18422 03/01/2022 2:38 PM RADIATION DOSE METRICS: Total DLP (mGy-cm): 1370.25 FINDINGS: Atherosclerotic burden: Moderate atherosclerotic disease burden is evident. Aorta: No aortic aneurysm. No aortic dissection. Celiac trunk and mesenteric arteries: No occlusion or significant stenosis. Renal arteries: No occlusion or significant stenosis. Right iliac arteries: Mild right common iliac stenosis measured at approximately 50% secondary to calcified atherosclerotic plaque. Right femoral/popliteal arteries: Mild stenosis of right common femoral artery secondary to calcified atherosclerotic plaque. Right infrapopliteal arteries: No occlusion or significant stenosis. Left iliac arteries: Mild left common iliac artery stenosis measured at 40% secondary to calcified atherosclerotic plaque. Left femoral/popliteal arteries: Mild stenosis of left common femoral artery secondary to calcified atherosclerotic plaque. Left infrapopliteal arteries: No occlusion or significant stenosis. Lungs: Moderate centrilobular emphysematous changes are present. Liver: No mass. Gallbladder and bile ducts: Unremarkable. No calcified stones. No ductal dilation. Pancreas: Unremarkable. No mass. No ductal dilation. Spleen: Normal. No splenomegaly. Adrenal glands: Normal. No mass. Kidneys and ureters: 7 mm incidental left renal cyst requiring no further evaluation. Stomach and bowel: Incidental duodenal diverticulum noted. Colonic diverticulosis is present without diverticulitis. Appendix: No evidence of appendicitis. Urinary bladder: Unremarkable. No mass. Reproductive: Prior hysterectomy noted. Intraperitoneal space: Unremarkable. No free air. No significant fluid collection. Lymph nodes: No lymphadenopathy. Bones/joints: Minimal joint effusion at left knee. Moderate joint effusion at right knee. Old right rib fracture evident. There are severe degenerative changes in the left hip joint. Multilevel degenerative disc disease is noted with vacuum phenomenon. Osteophytes are noted extending from the vertebrae. No acute spinal pathology is detected. Soft tissues: Unremarkable. CT/CT angio abd aorta runof [id number] IMPRESSION: 1. Moderate centrilobular emphysematous changes are present. 2. Mild right common iliac stenosis measured at approximately 50% secondary to calcified atherosclerotic plaque. 3. Mild left common iliac artery stenosis measured at 40% secondary to calcified atherosclerotic plaque. 4. Mild stenosis of right common femoral artery secondary to calcified atherosclerotic plaque. 5. Mild stenosis of left common femoral artery secondary to calcified atherosclerotic plaque.
[2023-10-09] MEDS: iohexol 350 mg/mL 500 mL Btl (per mL) IV (14:31)
== END 2023-10-09 13:58 | disposition home or self-care (01) ==
LOC: RAD 14:02
PROVIDERS: PCP Internal Medicine; Visit Provider Nurse Practitioner Family
DX: I70.203 Unspecified atherosclerosis of native arteries of extremities, bilateral legs (principal); I77.1 Stricture of artery; R10.31 Right lower quadrant pain; M54.50 Low back pain, unspecified; J43.2 Centrilobular emphysema
CPT/HCPCS: 75635; Q9967

== ENCOUNTER 2024-01-01 11:10 | Emergency (ER) | payer MEDICARE, SELFPAY ==
[2024-01-01 11:14] VITALS: BP 172/91; PULSE 100; RESP 17; TEMP 36.7; O2SAT 95; BMI 29.2
[2024-01-01 12:21] LABS: Basophils # 0.1 10^3/uL (0.0-0.1); Basophils % 0.5 %; Eosinophils # 0.1 10^3/uL (0.0-0.8); Eosinophils % 0.7 %; Hematocrit 43.8 % (36-47); Lymphocytes # 1.3 10^3/uL (0.8-4.8); Lymphocytes % 10.9 %; Mean Corpuscular HGB Conc 32.4 g/dL (30-55); Mean Corpuscular Hemoglobin 29.2 pg (27-33); Mean Corpuscular Volume 89.9 fl (85-98); Monocytes % 8.2 %; Neutrophils # 9.55 10^3/uL (1.8-7.7); Neutrophils % 78.7 %; Nucleated Red Blood Cells % 0 %; Platelet Count 421 10^3/cmm (157-399); Red Blood Count 4.87 10^6/uL (3.85-5.65); White Blood Count 12.13 10^3/uL (3.29-11.43)
[2024-01-01 12:45] LABS: Alanine Aminotransferase 17 U/L (0-33); Albumin Level 3.5 g/dL (3.5-5.2); Alkaline Phosphatase 105 U/L (35-105); Anion Gap 16.6 (5-19); Aspartate Amino Transferase 13 U/L (0-32); Blood Urea Nitrogen 10 mg/dL (8-23); Calcium 9.2 mg/dL (8.5-10.5); Carbon Dioxide 24 mmol/L (22-29); Chloride 102 mmol/L (98-107); Creatinine Clr Calc Pharmacy 57.9228; Globulin 3.4 g/dL (1.3-4.6); Glomerular Filtration Rate 99.4 mL/min (90-130); Glucose 107 mg/dL (65-115); Lipase 14 U/L (13-60); Osmolality Calculated 288 mOsm/kg (285-295); Potassium 3.6 mmol/L (3.5-5.1); Sodium 139 mmol/L (136-145); Total Bilirubin 0.3 mg/dL (0.15-1.2); Total Protein 6.9 g/dL (6.6-8.7)
--- NOTE | 2024-01-01 13:16 | ED_ITS ---
HPI - Nausea/Vomiting/Diarrhea 2 General: Chief complaint: Nausea/Vomiting/Diarrhea Stated complaint: Nausea Time Seen by Provider: 01/01/24 13:01 Source: patient Mode of arrival: ambulatory Limitations: no limitations History of Present Illness: 68-year-old female states she has been h aving nausea vomiting last 2 days states she has not been able to tolerate any p.o. she feels like she is getting dehydrated she denies any pain denies any fever she has had no diarrhea states she had normal bowel movements. Associated nausea: Yes Associated symtoms: Reports nausea; Denies chest pain, dysuria or headache(s) Review of Systems 2 Const: Denies: fever(s), chills, body aches or change in appetite ENMT: Denies: throat pain or dental pain Card: Denies: chest pain Resp: Denies: dyspnea GI: Reports: nausea and vomiting; Denies: abdominal pain or diarrhea : Denies: dysuria Musc: Denies: neck pain or back pain Skin/Breast: Denies: rash Neuro: Denies: headache(s) PFSH ED 2 PFSH: Medical History Hypothyroidism Spinal enthesopathy MDD (major depressive disorder) Osteoarthritis Obesity COPD (chronic obstructive pulmonary disease) Hyperlipidemia Essential hypertension Iliac artery stenosis, bilateral Pure hypercholesterolemia Atherosclerosis of artery of both lower extremities Surgical History Hx of hysterectomy Family History Father CAD (coronary artery disease), Onset Age: 60 Mother Diabetes Lung disease Brother Diabetes Denies family history of Clotting disorder Dementia Chronic kidney disease (CKD) Suicide Anesthesia complication Bleeding disorder Cancer Stroke Social History Smoking and tobacco/nicotine status: current every day tobacco/nicotine user Alcohol intake: never Substance/Drug Use: never Physical Exam 2 Const: COMMON NORMALS: no acute distress, patient oriented x3 and healthy appearing HENMT: COMMON NORMALS: normocephalic and atraumatic HEAD & SCALP: n ormocephalic and atraumatic Eye: COMMON NORMALS: Equal, round and reactive pupils present and EOMs intact bilaterally PUPIL: Yes Equal, round and reactive pupils present Neck/C-Spine: COMMON NORMALS: full ROM and supple Chest: COMMONS NORMALS: normal inspection of the chest Resp: COMMON NORMALS: normal respiratory effort Cardio: COMMON NORMALS: regular rate, regular rhythm and No murmurs present (Cardio) RATE: regular rate RHYTHM: regular rhythm GI: COMMON NORMALS: Normal to inspection, nondistended, normoactive bowel sounds present, Soft to palpation, non-tender and no masses PALPATION: Yes Soft to palpation Extremity: COMMON NORMALS: normal to inspection and full ROM Neuro: COMMON NORMALS: patient oriented x3, moves all extremities and no focal motor deficits Psych: COMMON NORMALS: mental status grossly normal, Normal thought process present and cooperative THOUGHT PROCESS: Normal thought process present Skin: COMMON NORMALS: no rashes or lesions noted and no wounds GENERAL SKIN EXAM: no rashes or lesions noted Course 2 Vital Signs: Vital signs: Vital Signs Temperature 98.1 F 01/01/24 11:14 Pulse Rate 85 01/01/24 16:04 Respiratory Rate 17 01/01/24 11:14 Blood Pressure 142/96 01/01/24 16:04 Pulse Oximetry 94 01/01/24 16:04 Oxygen Delivery Me thod Room Air 01/01/24 15:00 MDM - Nausea/Vomiting/Diarrhea Medical Decision Making Patient presents here with nausea she does feel improved here abdominal exam is benign no tenderness no signs of acute surgical abdomen blood work is normal we will prescribe her Zofran she is follow-up with PCP return if worsening. Medical Records I reviewed the patient's medical records. Lab Data I reviewed the patient's lab results. 01/01/24 12:13 01/01/24 12:13 Laboratory Results WBC 12.13 10^3/uL (3.29-11.43) H 01/01/24 12:13 RBC 4.87 10^6/uL (3.85-5.65) 01/01/24 12:13 Hgb 14.20 g/dL (11.27-16.99) 01/01/24 12:13 Hct 43.8 % (36-47) 01/01/24 12:13 MCV 89.9 fl (85-98) 01/01/24 12:13 MCH 29.2 pg (27-33) 01/01/24 12:13 MCHC 32.4 g/dL (30-55) 01/01/24 12:13 RDW 14.0 % (12.1-15.1) 01/01/24 12:13 Plt Count 421 10^3/cmm (157-399) H 01/01/24 12:13 MPV 9.0 fL (7.4-10.4) 01/01/24 12:13 Neut % (Auto) 78.7 % 01/01/24 12:13 Lymph % (Auto) 10.9 % 01/01/24 12:13 [place] % (Auto) 8.2 % 01/01/24 12:13 Eos % (Auto) 0.7 % 01/01/24 12:13 Baso % (Auto) 0.5 % 01/01/24 12:13 Neut # (Auto) 9.55 10^3/uL (1.8-7.7) H 01/01/24 12:13 Lymph # (Auto) 1.3 10^3/uL (0.8-4.8) 01/01/24 12:13 [place] # (Auto) 1.0 10^3/uL (0.2-0.9) H 01/01/24 12:13 Eos # (Auto) 0.1 10^3/uL (0.0-0.8) 01/01/24 12:13 Baso # (Auto) 0.1 10^3/uL (0.0-0.1) 01/01/24 12:13 Nucleated RBC % (auto) 0 % 01/01/24 12:13 Nucleated RBCs # 0.0 /100WBC 01/01/24 12:13 Sodium 139 mmol/L (136-145) 01/01/24 12:13 Potassium 3.6 mmol/L (3.5-5.1) 01/01/24 12:13 Chloride 102 mmol/L (98-107) 01/01/24 12:13 Carbon Dioxide 24 mmol/L (22-29) 01/01/24 12:13 Anion Gap 16.6 (5-19) 01/01/24 12:13 BUN 10 mg/dL (8-23) 01/01/24 12:13 Creatinine 0.6 mg/dL (0.5-0.9) 01/01/24 12:13 GFR Calculation 99.4 mL/min (90-130) 01/01/24 12:13 Glucose 107 mg/dL (65-115) 01/01/24 12:13 Calculated Osmolality 288 mOsm/kg (285-295) 01/01/24 12:13 Calcium 9.2 mg/dL (8.5-10.5) 01/01/24 12:13 Total Bilirubin 0.3 mg/dL (0.15-1.2) 01/01/24 12:13 AST 13 U/L (0-32) 01/01/24 12:13 ALT 17 U/L (0-33) 01/01/24 12:13 Alkaline Phosphatase 105 U/L (35-105) 01/01/24 12:13 Total Protein 6.9 g/dL (6.6-8.7) 01/01/24 12:13 Albumin 3.5 g/dL (3.5-5.2) 01/01/24 12:13 Globulin 3.4 g/dL (1.3-4.6) 01/01/24 12:13 Lipase 14 U/L (13-60) 01/01/24 12:13 Urine Color Yellow (Yellow) 01/01/24 14:32 Urine Appearance Clear (CLEAR) 01/01/24 14:32 Urine pH 7 (5-7) 01/01/24 14:32 Ur Specific [place] 1.010 (1.005-1.030) 01/01/24 14:32 Urine Protein Neg (Negative) 01/01/24 14:32 Urine Glucose (UA) Norm (Normal) 01/01/24 14:32 Urine Ketones 2+ (Negative) H 01/01/24 14:32 Urine Blood Neg (Negative) 01/01/24 14:32 Urine Nitrate Negative (Negative) 01/01/24 14:32 Urine Bilirubin Neg (Negative) 01/01/24 14:32 Urine Urobilinogen Neg mg/dL (Negative) 01/01/24 14:32 Ur Leukocyte Esterase Negative (Negative) 01/01/24 14:32 No radiology studies performed this visit Discharge Plan Discharge Patient Disposition: Home Clinical Impression: Nausea Condition: Stable Prescriptions: New ondansetron 4 mg tablet,disintegrating 4 mg PO Q6H PRN (Reason: nausea and vomiting) Qty: 14 0RF No Action rosuvastatin [Crestor] 5 mg tablet 5 mg PO DAILY 30 Days Qty: 90 3RF ondansetron 4 mg tablet,disintegrating 4 mg PO BID PRN (Reason: nausea and vomiting) 4 Days Qty: 8 1RF albuterol sulfate 2.5 mg /3 mL (0.083 %) solution for nebulization 2.5 mg inhalation Q4H PRN (Reason: Shortness Of Breath) tramadol 50 mg tablet 100 mg PO BID PRN (Reason: Pain) levothyroxine 50 mcg tablet 50 mcg PO QAM albuterol sulfate 90 mcg/actuation HFA aerosol inhaler 2 puff INHALATION Q4H PRN (Reason: Shortness Of Breath) tiotropium bromide [Spiriva with HandiHaler] 18 mcg capsule, w/inhalation device 1 cap INHALATION QAM budesonide-formoterol [Symbicort] 160-4.5 mcg/actuation HFA aerosol inhaler 2 puff INHALATION BID promethazine 25 mg Tablet 25 mg PO BID PRN (Reason: Nausea) amlodipine 5 mg tablet 5 mg PO DAILY hydralazine 25 mg tablet 25 mg PO QPM clopidogrel 75 mg tablet 75 mg PO DAILY pregabalin 75 mg capsule 75 mg PO TID PRN (Reason: NERVE PAIN) Movantik 25 mg tablet 25 mg PO DAILY Discharge Orders: Discharge ED (Routine); Ordered 01/01/24 Ordered By: Richie Motley Discharge Diet: Advance as tolerated Discharge Activity: Resume usual activity Patient Instructions: Acute Nausea and Vomiting (ED) Coding Level of Care Code ED Leathersmith for Rebecca Henry
[2024-01-01] MEDS: sodium chloride 0.9% 1,000 ML 999 ML IV (13:29)
[2024-01-01] MEDS: ondansetron 2 mg/ML SDV 2 mL 4 MG IVP (13:31)
[2024-01-01 14:00] VITALS: BP 157/83; PULSE 87; O2SAT 93
[2024-01-01 14:41] LABS: Add Urine Microscopic? NO; Charge for UA Resulting for Rev
[2024-01-01 14:48] LABS: Protein Urine Neg (Negative); Urine Appearance Clear (CLEAR); Urine Color Yellow (Yellow); pH Urine 7 (5-7)
[2024-01-01 14:49] LABS: Bilirubin Urine Neg (Negative); Blood Urine Neg (Negative); Glucose Urine UA Norm (Normal); Ketones Urine 2+ (Negative); Leukocyte Esterase Urine Negative (Negative); Nitrate Urine Negative (Negative); Urobilinogen Urine Neg (Negative)
[2024-01-01] MEDS: promethazine 25 mg/mL SDV 1 mL 12.5 MG IM (14:54)
[2024-01-01 15:00] VITALS: BP 163/98; PULSE 89; O2SAT 94
[2024-01-01 16:04] VITALS: BP 142/96; PULSE 85; O2SAT 94
== END 2024-01-01 15:42 | disposition home or self-care (01) ==
PROVIDERS: Emergency Provider Emergency Medicine
DX: R11.0 Nausea (principal); Z79.02 Long term (current) use of antithrombotics/antiplatelets; Z72.0 Tobacco use; J44.9 Chronic obstructive pulmonary disease, unspecified; E78.5 Hyperlipidemia, unspecified; I10 Essential (primary) hypertension
CPT/HCPCS: 36415; 80053; 81003; 83690; 85025; 96361; 96372; 96374; 99284; J2405; J2550; J7030

== ENCOUNTER → 2024-03-31 14:05 | Outpatient (BNVA) | payer MEDICARE, SELFPAY | PROVIDERS: Visit Provider Internal Medicine Cardiovascular Disease | DX: I70.203 Unspecified atherosclerosis of native arteries of extremities, bilateral legs (principal); E78.00 Pure hypercholesterolemia, unspecified; I10 Essential (primary) hypertension; I65.22 Occlusion and stenosis of left carotid artery; Z87.891 Personal history of nicotine dependence | CPT/HCPCS: 99214 ==

== ENCOUNTER 2024-05-02 11:54 | Outpatient (CLI) | payer MEDICARE, SELFPAY ==
--- NOTE | 2024-05-02 12:15 | USCV_ITS ---
Anju Tipton Age: 69 Gender: F : 1955 Exam Date: 05/02/2024 12:19 Ordering Phys: Ning Weeks MD ([email or web address]) Technologist: [place] [facility] [place]: Risk Factors: Previous Vascular Surgery: Right Brachial BP: / Left Brachial BP: / Right Left Velocity (cm/s) Spectral Plaque Velocity (cm/s) Spectral Plaque Syst/Diast Broadening Syst/Diast Broadening 111.20/23.50 Prox CCA 90.70 / 21.80 96.60/ 23.50 Mid CCA 87.70 / 25.40 91.10/ 30.80 Distal CCA 76.00 / 20.60 125.80/36.90 Prox ICA 105.40/ 29.20 114.60/25.80 Mid ICA 69.00 / 23.70 58.50/ 23.30 Distal ICA 65.40 / 21.70 74.40 ECA 88.10 1.40 ICA/CCA 1.40 Antegrade Vertebral Antegrade 45.30/ 14.50 cm/s 38.50/ 16.50 cm/s Bi Subclavian Bi 79.00 126.0 0 FINDINGS Moderate dense plaques at the bifurcation on the right side Mild to moderate plaques of the left bifurcation and proximal ICA Anterior flow in the vertebral arteries bilaterally. Normal Doppler flow velocities in the external carotid and subclavian arteries bilaterally. CONCLUSIONS Moderate dense plaques at the bifurcation on the right side. With Doppler features suggesting 50 to 69% stenosis Mild to moderate plaques of the left bifurcation and proximal ICA with the Doppler features suggesting less than 50% stenosis No significant stenosis in the vertebral, subclavian or external carotid arteries, based on the above findings Dr Ning Weeks MD [facility] (Electronically Signed) Final Date: 04 May 2024 22:58 S
== END 2024-05-02 11:55 | disposition home or self-care (01) ==
LOC: RAD 11:55
PROVIDERS: PCP Family Medicine; Visit Provider Internal Medicine Cardiovascular Disease
DX: I65.23 Occlusion and stenosis of bilateral carotid arteries (principal)
CPT/HCPCS: 93880

== ENCOUNTER → 2024-12-22 11:04 | Outpatient (BNVA) | payer MEDICARE, SELFPAY | PROVIDERS: PCP Family Medicine; Visit Provider Orthopaedic Surgery | DX: M17.12 Unilateral primary osteoarthritis, left knee (principal) | CPT/HCPCS: 36415; 80053; 81001; 85025; 99204 ==

== ENCOUNTER → 2025-01-06 08:35 | Outpatient (BNVA) | payer MEDICARE, SELFPAY | PROVIDERS: PCP Family Medicine; Visit Provider Family Medicine | DX: Z01.818 Encounter for other preprocedural examination (principal) | CPT/HCPCS: 81003; 93005 ==

== ENCOUNTER 2025-01-14 15:01 | Observation (INO) | payer MEDICARE, SELFPAY ==
[2025-01-14] VITALS (29 sets, daily range): BP systolic 97–139; BP diastolic 56–87; PULSE 70–91; RESP 12–20; TEMP 36.1–37.1; O2SAT 90–100; BMI 24.5
--- NOTE | 2025-01-14 06:52 | W.PM.OPSUD ---
Surgery/Procedure H&P Update DATE OF PROCEDURE: January 14, 2025 DATE H&P PERFORMED: 01/13/25 H&P UPDATE INFORMATION: I have reviewed H&P completed within last 30 days, I have examined patient prior to procedure and No changes to prior documentation PREOP DIAGNOSIS: End-stage degenerative joint disease left hip PLANNED PROCEDURE: Operation Date: 01/14/25 08:00 Proposed Procedures p LEFT Total Hip Arthroplasty(Left) - Robin Hutchins MD
[2025-01-14] MEDS: sodium chloride 0.9% 1,000 ML 30 ML IV (06:54)
--- NOTE | 2025-01-14 07:10 | ANES.PREANE2 ---
Pre-Anesthetic Assessment Height/Weight: Height 1.52 m Weight 53.07 kg Temp Pulse Resp BP Pulse Ox O2 Del Method 98.1 F 91 17 131/75 98 Room Air 01/14/25 06:47 01/14/25 06:47 01/14/25 06:47 01/14/25 06:47 01/14/25 06:47 01/14/25 06:47 Preop Diagnosis: End-stage degenerative joint disease left hip Operation Date: 01/14/25 08:00 Proposed Procedures p LEFT Total Hip Arthroplasty(Left) - Robin Hutchins MD Familial anesthetic complications: None Was Beta Cornelio taken within 24 hours: N/A Was Clonidine taken within 24 hours: N/A Last intake: Intake Last Liquid Date 01/13/25 Last Liquid Time 22:00 Last Solid Date 01/13/25 Last Solid Time 18:00 Social No alcohol and No tobacco Exam alert, oriented x 3, clear to auscultation bilaterally and regular rate & rhythm Airway Mallampati: Class II CV/HEM Hypertension and Peripheral Vascular Disease Thrombocytosis - discussed again with Dr. Hyman and Dr. Kelly before proceeding.Thoguht to be reactive to microcytic anemia. Risk of clotting was thought to be low introperatively and will skip TXA. Plus will be on anticoagulation post-op Metabolic Hyperlipidemia Anesthetic Plan ASA status: 3 Anesthesia: General Other: Due to consideration for thrombocytosis and possibility of increased bleeding, decided to proceed with general Risk of > 500 ml blood loss (7ml/kg in children): No Medications/Allergies Home Medications ?Medication ?Instructions ?Recorded ?Confirmed ?Last Taken ?Type albuterol sulfate 2.5 mg/3 mL 2.5 mg inhalation Q4H PRN 11/16/21 01/14/25 11/16/21 09:00 History (0.083 %) solution for nebulization Shortness Of Breath albuterol sulfate 90 mcg/actuation 2 puff inhalation Q4H PRN 11/16/21 01/14/25 01/13/25 History aerosol inhaler Shortness Of Breath levothyroxine 50 mcg tablet 50 mcg PO QAM 11/16/21 01/14/25 01/14/25 History tramadol 50 mg tablet 100 mg PO BID PRN Pain 11/16/21 01/14/25 11/15/21 History rosuvastatin 5 mg tablet (Crestor) 5 mg PO DAILY 30 days #90 tabs 08/01/23 01/14/25 01/13/25 Rx amlodipine 5 mg tablet 5 mg PO DAILY 01/01/24 01/14/25 01/13/25 History ondansetron 4 mg disintegrating 4 mg PO BID PRN nausea and 01/01/24 01/14/25 Unknown Rx tablet vomiting 4 days #8 tabs hydralazine 25 mg tablet 25 mg PO Q12H #180 tabs 04/08/24 01/14/25 01/13/25 Rx budesonide 160 mcg-glycopyr 9 2 inh inhalation BID 01/06/25 01/14/25 01/13/25 History mcg-formot 4.8 mcg/actuation HFA inhaler (Breztri Aerosphere) pantoprazole 40 mg tablet,delayed 40 mg PO DAILY 01/13/25 01/14/25 01/14/25 History release Allergies Allergy/AdvReac Type Severity Reaction Status Date / Time varenicline (From Phenomix) Allergy Severe head is Verified 01/06/25 09:07 exploding atorvastatin Allergy stomach Verified 01/06/25 09:07 cramps Current Medications Generic Name Dose Route Start Last Admin Trade Name Freq PRN Reason Stop Dose Admin Sodium Chloride 1,000 mls @ 30 mls/hr 01/14/25 06:45 01/14/25 06:54 Sodium Chloride 0.9% IV 01/15/25 06:44 30 mls/hr .Q24H LEO Administration PFSH Anesthesia Medical History Hypothyroidism Spinal enthesopathy MDD (major depressive disorder) Osteoarthritis Obesity COPD (chronic obstructive pulmonary disease) Hyperlipidemia Essential hypertension Iliac artery stenosis, bilateral Pure hypercholesterolemia Atherosclerosis of artery of both lower extremities Surgical History Hx of hysterectomy Family History Father CAD (coronary artery disease), Onset Age: 60 Mother Diabetes Lung disease Brother Diabetes Denies family history of Clotting disorder Dementia Chronic kidney disease (CKD) Suicide Anesthesia complication Bleeding disorder Cancer Stroke Social History Smoking and tobacco/nicotine status: former use of tobacco/nicotine Alcohol intake: never Substance/Drug Use: never Data Anesthesia 01/14/25 07:07 Short CBC 01/14/25 Range/Units 07:07 WBC 9.46 (3.29-11.43) 10^3/uL Hgb 10.70 L (11.27-16.99) g/dL Hct 34.0 L (36-47) % MCV 80.6 L (85-98) fl Plt Count 536 H (157-399) 10^3/cmm Neut % (Auto) 77.9 % Neut # (Auto) 7.36 (1.8-7.7) 10^3/uL
[2025-01-14 07:13] LABS: Basophils # 0.1 10^3/uL (0.0-0.1); Basophils % 0.5 %; Eosinophils # 0.1 10^3/uL (0.0-0.8); Eosinophils % 0.8 %; Lymphocytes # 0.9 10^3/uL (0.8-4.8); Lymphocytes % 9.6 %; Mean Corpuscular HGB Conc 31.5 g/dL (30-55); Mean Corpuscular Hemoglobin 25.4 pg (27-33); Mean Corpuscular Volume 80.6 fl (85-98); Mean Platelet Volume 8.5 fL (7.4-10.4); Monocytes % 10.8 %; Neutrophils # 7.36 10^3/uL (1.8-7.7); Neutrophils % 77.9 %; Nucleated Red Blood Cells % 0 %; Platelet Count 536 10^3/cmm (157-399); Red Blood Count 4.22 10^6/uL (3.85-5.65); Red Cell Distribution Width 15.9 % (12.1-15.1); White Blood Count 9.46 10^3/uL (3.29-11.43)
[2025-01-14] MEDS: ceFAZolin 2,000 mg SDV 2000 MG IVP ×3 (08:29→22:45)
--- NOTE | 2025-01-14 09:54 | XRR_ITS ---
PROCEDURE INFORMATION: Exam: XR Left Hip Exam date and time: 01/14/2025 10:06 AM Age: 69 years old Clinical indication: Device placement; Other: Hip arthroplasty; Prior surgery; Surgery date: Post-operative (0-2 days); Additional info: Total hip arthroplasty TECHNIQUE: Imaging protocol: Radiologic exam of the left hip. Views: 1 view hip with pelvis when performed. COMPARISON: CR XR hip LT 2-3V wo/w pel* [id number] 12/03/2024 10:09 AM FINDINGS: Tubes, catheters and devices: Surgical clips overlie the left hip. Bones/joints: Status post left hip arthroplasty. Hardware is intact. Anatomic alignment. No perihardware lucency. No acute fracture or dislocation. Soft tissues: Soft tissue swelling and gas. XR/XR hip LT 1V wo/w pel [id number] IMPRESSION: Status post left hip arthroplasty without evidence of hardware failure.
--- NOTE | 2025-01-14 10:07 | P.OP_ITS ---
Operative Report Date of procedure: January 14, 2025 Surgeon: Robin Hutchins MD Procedure: Preoperative diagnosis: End-stage degenerative joint disease left Postoperative diagnosis: Same Procedure: Left total hip arthroplasty Surgeon: Robin Hutchins MD Insulator Technician: KESHIA Miller's assistance was necessary for placement of the patient on the table, assistance during the procedure, wound closure, transport of the patient back to PACU. Anesthesia: General EBL: 400 cc Indications: Anju is a 69-year-old white female who presented to the orthopedic clinics with x-rays that demonstrated collapse of her femoral head with cystic changes within the femoral head and at the superior acetabulum. She had gross osteoarthritic changes in this area. She is having debilitating pain and inability to walk. She had to use assistive devices to ambulate. She also had loss of motion with crepitation with the hip on active and passive range of motion. Therefore at this time she was offered a total hip arthroplasty. All risk benefits treatment alternatives were discussed with her and she was agreeable to this. Procedure: After obtaining consent patient taken to the operating room and placed operative table supine position general anesthetic administered. Once good anesthesia achieved Avery catheter was placed. Patient is placed in a lateral decubitus position with the left hip up. She was held in place with the peg board table. Subsequently left hip and leg were prepped and draped usual fashion. After surgical timeout the hip was flexed about 90 degrees and a minimally invasive posterior lateral incision was made over the greater trochanter. Sharp dissection taken on down to subcutaneous tissue electrocautery used for hemostasis. Leg was slightly internally rotated and dissection was taken down along the posterior aspect of greater trochanter with electrocautery. Removing all soft tissues all the way down the femoral neck. Capsule of the hip was then opened up in a T-type fashion. Hip was then internally rotated and dislocated. Appropriate deep retractors were placed. Proximal femur was templated with a femoral cutting template. Femoral cut was made without any difficulties. Femoral head and neck were removed en bloc without any problems. Appropriate retractors placed to hold the proximal femur out of view of the acetabulum. Using pickups and a long-handle 10 blade labrum was sharply debrided from the acetabulum. Starting out a size 46 acetabular reamer reaming was done in stepwise fashion by 1 mm increments all the way up to a 49 mm acetabular reamer. Good bleeding bone was identified circumferentially in the acetabulum at this time. Size 50 reamer was used just to clear the proximal portion acetabulum. A permanent size 50 acetabular cup was placed with appropriate anteversion and impacted. Small instrument was used to confirm that that cup was all the way down firmly on the deep surface of the acetabulum which was. Polyethylene liner was then placed and impacted into the acetabular cup without any difficulties. Attention was turned towards the proximal femur. Proximal retractor to hold the femur up out of the wound was placed. Box cut osteotome was used to make entry point into the proximal femur. Hand reaming was done in the canal. Then a stepwise fashion broaching was done starting off with a 0 and progressing up to a size 2 broach before adequate fit and fill was identified. This was removed and the areas washed with copious amounts of sterile irrigation. A permanent size 2 femoral stem was then placed with appropriate anteversion and impacted. Trial head and neck's were placed on nervously starting with a standard finding of the leg was slightly shortened and therefore going to a +5 neck standard 36 mm head placed this on the permanent femoral component and reduced the hip and found to have good leg length quality as well as good stability throughout the range of motion. Hip was dislocated again trial head and neck were removed and a permanent ceramic size 36 head +5 neck was then placed on the Us taper of the femoral component impacted. Hip was then reduced but range of motion found to be stable with equal leg lengths. Washed with sterile irrigation again. Capsule was repaired with #1 Vicryl [id number] sutures. Piriformis repaired back to the bone through bone tunnels using #5 Ethibond [id number]-vl-[id number] suture. Deep retractor removed. Deep fascia was repaired with 0 Vicryl [id number]-[id number] sutures. Subcutaneous tissue repaired with 2 oh strata fix suture. Skin was closed with skin jean. Wounds are clean and dry dressed with the nonadhesive Telfa dressing with OpSite over the area. Patient is placed in abduction pillow awakened and transferred recovery room in stable condition
[2025-01-14] MEDS: ondansetron 2 mg/ML SDV 2 mL 4 MG IVP ×2 (10:20→12:31)
[2025-01-14] MEDS: fentaNYL 50 mcg/mL INJ 2mL IVP ×2 (10:20→10:27)
[2025-01-14] MEDS: HYDROmorphone 1 mg/mL INJ 1ml 0.5 MG IVP ×2 (10:35→10:45)
--- NOTE | 2025-01-14 15:05 | ANE.PACU2 ---
Inpatient post-anesthesia follow up: Airway intact: Yes Vital signs: Temperature 98.7 F Pulse Rate 80 Respiratory Rate 16 Blood Pressure 114/63 Pulse Oximetry 95 Oxygen Delivery Me thod Room Air Oxygen Flow Rate 2 Fraction of Inspir ed Oxygen Hydration adequate: Yes Nausea and vomiting: No Pain level: 1 Mental status: Baseline
[2025-01-14] MEDS: ipratropium 0.5 mg/2.5 mL Neb INHALATION ×2 (15:44→20:23)
[2025-01-14] MEDS: ketorolac 30 mg/mL INJ 15 MG IVP ×2 (16:55→22:44)
[2025-01-14] MEDS: calcium carbonate 500 mg Chew Tablet 1000 MG PO (16:58)
[2025-01-14] MEDS: mupirocin oint 22 gm 1 APPLIC NASAL (16:59)
[2025-01-14] MEDS: chlorhexidine gluconate 0.12% Btl 473 mL 30 ML MUCOUS MEM ×2 (17:01→19:23)
[2025-01-14] MEDS: iron polysaccharide complex 150 mg Capsule PO (17:18)
[2025-01-14] MEDS: lactated ringers 1,000 ML 100 ML IV ×2 (17:21→22:45)
[2025-01-14] MEDS: morphine 4 mg/mL SDV 1 mL 2 MG IVP (20:13)
[2025-01-14] MEDS: budesonide 0.5 mg/2 mL Neb INHALATION (20:23)
[2025-01-15] VITALS (10 sets, daily range): BP systolic 122–137; BP diastolic 73–78; PULSE 78–100; RESP 16–18; TEMP 36.4–36.9; O2SAT 91–98
[2025-01-15] MEDS: morphine 4 mg/mL SDV 1 mL 2 MG IVP ×2 (03:04→07:38)
[2025-01-15] MEDS: lactated ringers 1,000 ML 100 ML IV (05:01)
[2025-01-15 06:09] LABS: Basophils % 0.1 %; Hematocrit 26.1 % (36-47); Lymphocytes # 0.9 10^3/uL (0.8-4.8); Lymphocytes % 10.5 %; Mean Corpuscular Hemoglobin 26.3 pg (27-33); Mean Corpuscular Volume 84.7 fl (85-98); Mean Platelet Volume 9.2 fL (7.4-10.4); Monocytes # 0.9 10^3/uL (0.2-0.9); Monocytes % 10.1 %; Neutrophils % 78.7 %; Nucleated Red Blood Cells % 0 %; Platelet Count 451 10^3/cmm (157-399); Red Blood Count 3.08 10^6/uL (3.85-5.65); Red Cell Distribution Width 15.9 % (12.1-15.1); White Blood Count 8.89 10^3/uL (3.29-11.43)
[2025-01-15] MEDS: ketorolac 30 mg/mL INJ 15 MG IVP ×2 (06:20→14:18)
[2025-01-15 06:42] LABS: Anion Gap 21.6 (5-19); Blood Urea Nitrogen 18 mg/dL (8-23); Carbon Dioxide 20 mmol/L (22-29); Chloride 102 mmol/L (98-107); Glucose 110 mg/dL (65-115); Osmolality Calculated 291 mOsm/kg (285-295); Potassium 4.6 mmol/L (3.5-5.1); Sodium 139 mmol/L (136-145)
[2025-01-15] MEDS: ceFAZolin 2,000 mg SDV 2000 MG IVP (07:37)
[2025-01-15] MEDS: iron polysaccharide complex 150 mg Capsule PO (07:38)
[2025-01-15] MEDS: calcium carbonate 500 mg Chew Tablet 1000 MG PO (07:39)
[2025-01-15] MEDS: aspirin 325 mg EC Tablet PO (07:39)
[2025-01-15] MEDS: multivitamin therapeutic Tablet 1 TAB PO (07:39)
[2025-01-15] MEDS: chlorhexidine gluconate 0.12% Btl 473 mL 30 ML MUCOUS MEM ×2 (07:39→12:53)
[2025-01-15] MEDS: cholecalciferol (vitamin D3) 1,000 unit Tablet 1000 UNIT PO (07:39)
[2025-01-15] MEDS: mupirocin oint 22 gm 1 APPLIC NASAL (07:40)
[2025-01-15] MEDS: budesonide 0.5 mg/2 mL Neb INHALATION (08:31)
[2025-01-15] MEDS: ipratropium 0.5 mg/2.5 mL Neb INHALATION ×2 (08:31→11:45)
[2025-01-15] MEDS: HYDROcodone-acetaminophen 5-325 mg Tablet 2 TAB PO ×2 (11:26→15:23)
--- NOTE | 2025-01-15 14:07 | PM.DCS ---
Discharge Providers Date of Admission: 01/14/25 15:01 Date of Discharge: January 15, 2025 Attending Provider at Admission: Robin Hutchins MD Attending Provider at Discharge: Robin Hutchins MD Primary Care Provider: Rad Arce MD Reason for Visit Reason for Visit: M87.852 Brief History: Anju is a 69-year-old white female who presented to the orthopedic clinics with x-rays that demonstrated collapse of her femoral head with cystic changes within the femoral head and at the superior acetabulum. She had gross osteoarthritic changes in this area. She is having debilitating pain and inability to walk. She had to use assistive devices to ambulate. She also had loss of motion with crepitation with the hip on active and passive range of motion. Therefore at this time she was offered a total hip arthroplasty. All risk benefits treatment alternatives were discussed with her and she was agreeable to this. Patient was taken for a successful left total hip arthroplasty on January 14, 2025. Hospital Course Hospital Course Patient is postoperative day 1 after left total hip arthroplasty. She is doing well and sitting up at bedside during today's visit. She has worked with physical therapy, aide ambulating with the assistance of a walker. She has tolerated therapy services well. She is transition to oral medications postoperatively and her pain is well-managed. Postoperative dressings are intact with minimal bloody drainage. Vital signs and postoperative blood work were reviewed and patient was found to be stable for discharge. We will plan to send her home with home therapy and nursing services, as insurance covers. She will follow-up in the orthopedic clinic in [address] Robin Hutchins MD. Physical Exam Const: COMMON NORMALS: no acute distress, average body habitus, patient oriented x3, no limitations, alert and well nourished GENERAL APPEARANCE: cooperative; not anxious and not combative ORIENTATION/CONSCIOUSNESS: Yes awake, Yes oriented to person, Yes oriented to place and Yes oriented to time HENMT: COMMON NORMALS: normocephalic and atraumatic HEAD & SCALP: normocephalic and atraumatic Resp: COMMON NORMALS: normal respiratory effort Cardio: OTHER: Denies shortness of breath, cough, chest discomfort or pressure. Extremity: LEFT LOWER EXTREMITY: Yes hip joint Left hip: Yes inspection (Postoperative dressing dry and intact. Minimal bloody drainage noted), Yes palpation (Mild TTP to incision site and lateral hip.), Yes ROM (Able to straight leg raise, slightly.) and Yes neurovascular exam (Sensation intact to light touch. Rapid cap refill. Skin blanches well.) and Yes lower leg Left lower leg: Yes special tests (Calf soft, nontender. No swelling.) Left lower leg special tests: Jann's sign: Negative Neuro: COMMON NORMALS: patient oriented x3 SENSORIUM/ORIENTATION: Yes alert, Yes oriented to person, Yes oriented to place and Yes oriented to time Psych: ATTITUDE: Yes engaged Skin: COMMON NORMALS: no rashes or lesions noted, turgor normal and no jaundice GENERAL SKIN EXAM: no rashes or lesions noted and turgor normal Urinary Catheter Management: Avery: Cath Placed During This Visit: yes, but has since been removed by the nurse Reason for Continuing Indwelling Catheter: Perioperative Use in Selected Surgeries Urinary Catheter Date of Insertion: 01/14/25 Urinary Catheter Time of Insertion: 08:41 Date Urinary Catheter Removed: 01/15/25 Time Urinary Catheter Discontinued: 06:00 Discharge Data Studies Completed and Pending Completed Studies During Hospitalization Category Date Time Status XR hip LT 1V wo/[place] pel [id number] Routine Exams 01/14/25 09:54 Completed Pending at discharge Category Date Time Status Complete Blood Count w/Auto AM LABS Lab 01/16/25 04:00 Uncollected Complete Blood Count w/Auto AM LABS Lab 01/17/25 04:00 Uncollected Radiology Impressions Hip X-Ray 01/14/25 09:54 IMPRESSION: Status post left hip arthroplasty without evidence of hardware failure. Laboratory Results WBC 8.89 10^3/uL (3.29-11.43) 01/15/25 04:58 RBC 3.08 10^6/uL (3.85-5.65) L 01/15/25 04:58 Hgb 8.10 g/dL (11.27-16.99) L 01/15/25 04:58 Hct 26.1 % (36-47) L 01/15/25 04:58 MCV 84.7 fl (85-98) L D 01/15/25 04:58 MCH 26.3 pg (27-33) L 01/15/25 04:58 MCHC 31.0 g/dL (30-55) 01/15/25 04:58 RDW 15.9 % (12.1-15.1) H 01/15/25 04:58 Plt Count 451 10^3/cmm (157-399) H 01/15/25 04:58 MPV 9.2 fL (7.4-10.4) 01/15/25 04:58 Neut % (Auto) 78.7 % 01/15/25 04:58 Lymph % (Auto) 10.5 % 01/15/25 04:58 [place] % (Auto) 10.1 % 01/15/25 04:58 Eos % (Auto) 0.0 % 01/15/25 04:58 Baso % (Auto) 0.1 % 01/15/25 04:58 Neut # (Auto) 7.00 10^3/uL (1.8-7.7) 01/15/25 04:58 Lymph # (Auto) 0.9 10^3/uL (0.8-4.8) 01/15/25 04:58 [place] # (Auto) 0.9 10^3/uL (0.2-0.9) 01/15/25 04:58 Eos # (Auto) 0.0 10^3/uL (0.0-0.8) 01/15/25 04:58 Baso # (Auto) 0.0 10^3/uL (0.0-0.1) 01/15/25 04:58 Nucleated RBC % (auto) 0 % 01/15/25 04:58 Nucleated RBCs # 0.0 /100WBC 01/15/25 04:58 Sodium 139 mmol/L (136-145) 01/15/25 04:58 Potassium 4.6 mmol/L (3.5-5.1) 01/15/25 04:58 Chloride 102 mmol/L (98-107) 01/15/25 04:58 Carbon Dioxide 20 mmol/L (22-29) L 01/15/25 04:58 Anion Gap 21.6 (5-19) H 01/15/25 04:58 BUN 18 mg/dL (8-23) 01/15/25 04:58 Creatinine 0.7 mg/dL (0.5-0.9) 01/15/25 04:58 GFR Calculation 83.0 mL/min (90-130) L 01/15/25 04:58 Glucose 110 mg/dL (65-115) 01/15/25 04:58 Calculated Osmolality 291 mOsm/kg (285-295) 01/15/25 04:58 Calcium 9.0 mg/dL (8.5-10.5) 01/15/25 04:58 Vitals Last Vital Signs Temp 98.4 F 01/15/25 11:50 Pulse 90 01/15/25 11:51 Resp 16 01/15/25 11:50 BP 122/78 01/15/25 11:50 Pulse Ox 97 01/15/25 11:50 O2 Del Method Room Air 01/15/25 11:50 O2 Flow Rate 2 01/14/25 12:07 Discharge Plan Discharge Patient Disposition: Home Health Service Condition: Stable Prescriptions: New hydrocodone-acetaminophen 5-325 mg Tablet 1 tab PO Q4H PRN (Reason: Moderate Pain) Qty: 20 0RF aspirin 325 mg Tablet,Delayed Release (Dr/Ec) 325 mg PO DAILY Qty: 30 0RF Continued Breztri Aerosphere 160-9-4.8 mcg/actuation HFA aerosol inhaler 2 inh inhalation BID rosuvastatin [Crestor] 5 mg tablet 5 mg PO DAILY 30 Days Qty: 90 3RF ondansetron 4 mg tablet,disintegrating 4 mg PO BID PRN (Reason: nausea and vomiting) 4 Days Qty: 8 1RF hydralazine 25 mg tablet 25 mg PO Q12H Qty: 180 3RF albuterol sulfate 2.5 mg /3 mL (0.083 %) solution for nebulization 2.5 mg inhalation Q4H PRN (Reason: Shortness Of Breath) tramadol 50 mg tablet 100 mg PO BID PRN (Reason: Pain) levothyroxine 50 mcg tablet 50 mcg PO QAM albuterol sulfate 90 mcg/actuation HFA aerosol inhaler 2 puff INHALATION Q4H PRN (Reason: Shortness Of Breath) amlodipine 5 mg tablet 5 mg PO DAILY pantoprazole 40 mg tablet,delayed release (DR/EC) 40 mg PO DAILY Discharge Orders: Discharge Order (Routine); Ordered 01/15/25 Ordered By: Laura Hdez [facility] Robin Hutchins MD [Physician, Orthopedics] - 01/26/25 2:00 pm Discharge Diet: Advance as tolerated and Usual diet Discharge Activity: Increase activity as tolerated and Use walker/crutches as instructed Patient Instructions: Hydrocodone/Acetaminophen (By mouth), Aspirin (By mouth), Acute Wound Care (DC), Precautions after Total Joint Replacement Surgery (DC), Total Hip Replacement (DC), Opioid Safety, Post Anesthesia Care, Patient Portal & Rufino Instructions Activity Restrictions/Additional Instructions: May weight-bear as tolerated with the assistance of a walker. Utilize medications as a tool for pain relief. May alternate with Tylenol, not to exceed 3000 mg of Tylenol in 24 hours. Please note, your hydrocodone does have 325 mg of Tylenol per tablet. Aspirin 325 mg daily. Maintain clean and dry postoperative dressing. You may shower with running water and soap only. Postoperative dressing will stay in place until 2-week follow-up. Follow hip precautions as outlined by physical therapy. Discharge Attestations Time Spent in Discharge Care*: greater than 30 min Quality Metrics Clinical Quality Measures [ No reported AMI, CVA or VTE this stay] Coding Level of Care Code Acute Code for Jossueg Elaine
== END 2025-01-15 15:37 | disposition home health service (06) ==
LOC: MEDSURG 15:01
PROVIDERS: Anesthesiology; Admitting Provider Orthopaedic Surgery; PCP Family Medicine; Visit Provider Orthopaedic Surgery
PROC: (CPT 27130; principal; 2025-01-14 08:00)
DX: M16.12 Unilateral primary osteoarthritis, left hip (principal); K21.9 Gastro-esophageal reflux disease without esophagitis; I10 Essential (primary) hypertension; E78.5 Hyperlipidemia, unspecified; E03.9 Hypothyroidism, unspecified; E66.9 Obesity, unspecified; Z68.25 Body mass index [BMI] 25.0-25.9, adult; J44.9 Chronic obstructive pulmonary disease, unspecified; F32.9 Major depressive disorder, single episode, unspecified; I70.203 Unspecified atherosclerosis of native arteries of extremities, bilateral legs; Z87.891 Personal history of nicotine dependence
CPT/HCPCS: 27130; 36415; 51702; 73501; 80048; 85025; 94640; 97110; 97116; 97161; 97167; C1776; G0378; J0131; J0690; J1171; J1885; J2250; J2270; J2405; J2704; J3010; J7030; J7120; J7626; J7644; J9999

== ENCOUNTER → 2025-01-26 13:46 | Outpatient (BNVA) | payer MEDICARE, SELFPAY | PROVIDERS: PCP Family Medicine; Visit Provider Orthopaedic Surgery | DX: Z96.642 Presence of left artificial hip joint (principal) | CPT/HCPCS: 73502; 99024 ==

== ENCOUNTER → 2025-02-05 11:02 | Outpatient (BNVA) | payer MEDICARE, SELFPAY | PROVIDERS: PCP Family Medicine; Visit Provider Orthopaedic Surgery | DX: Z96.642 Presence of left artificial hip joint (principal) | CPT/HCPCS: 73502; 99024 ==

== ENCOUNTER → 2025-04-06 08:43 | Outpatient (BNVA) | payer MEDICARE, SELFPAY | PROVIDERS: PCP Family Medicine; Referring Provider Family Medicine; Visit Provider Internal Medicine Rheumatology | DX: M05.79 Rheumatoid arthritis with rheumatoid factor of multiple sites without organ or systems involvement (principal); Z79.899 Other long term (current) drug therapy; Z71.85 Encounter for immunization safety counseling; K29.50 Unspecified chronic gastritis without bleeding | CPT/HCPCS: 36415; 80076; 82306; 82565; 85025; 85651; 86140; 86480; 86704; 86803; 87340; 99204 ==

== ENCOUNTER 2025-04-08 10:19 | Outpatient (CLI) | payer MEDICARE, SELFPAY | END 2025-04-08 10:20 | disposition home or self-care (01) | PROVIDERS: PCP Family Medicine; Visit Provider Internal Medicine Rheumatology | DX: M05.79 Rheumatoid arthritis with rheumatoid factor of multiple sites without organ or systems involvement (principal); Z86.19 Personal history of other infectious and parasitic diseases | CPT/HCPCS: 36415; 87517 ==

== ENCOUNTER → 2025-04-09 09:37 | Outpatient (BNVA) | payer MEDICARE, SELFPAY | PROVIDERS: PCP Family Medicine; Visit Provider Orthopaedic Surgery | DX: Z98.890 Other specified postprocedural states (principal); Z96.642 Presence of left artificial hip joint | CPT/HCPCS: 99024 ==